=== PATIENT | female | born 1950 | race Caucasian/White ===

== ENCOUNTER 2017-01-14 19:55 | Emergency (ER) | payer OTHER ==
[2017-01-14 20:01] VITALS: BP 140/80; PULSE 78; TEMP 98; BMI 28.3
--- NOTE | 2017-01-14 20:36 | PDOC ---
History of Present Illness - General Chief Complaint: Burn Stated Complaint: BURN/EMPLOYEE Time Seen by Provider: 01/14/17 20:07 History Source: Patient Exam Limitations: No Limitations - History of Present Illness Timing/Duration: 1/2 hour Associated Symptoms: reports: denies symptoms Past History - Travel Traveled outside of the country in the last 30 days: No Close contact w/someone who was outside of country & ill: No - Past Medical History Allergies/Adverse Reactions: Allergies Allergy/AdvReac Type Severity Reaction Status Date / Time No Known Allergies Allergy Verified 05/13/16 20:50 Home Medications: Ambulatory Orders Cholecalciferol (Vitamin D3) [Vitamin D] 1,000 unit PO ASDIR 01/02/13 Hydrochlorothiazide 25 mg PO DAILY 01/02/13 Metoprolol Tartrate [Lopressor] 25 mg PO DAILY 01/02/13 Insulin Glargine,Hum.rec.anlog [Lantus Solostar PEN (NF)] 10 units SQ HS Diabetes: Yes (type 2) HTN: Yes Hypercholesterolemia: Yes - Surgical History Abdominal Surgery: Yes Cholecystectomy: Yes - Psycho/Social/Smoking Cessation Hx Anxiety: No Suicidal Ideation: No Smoking Status: Yes Smoking History: Former smoker Have you smoked in the past 12 months: No Number of Cigarettes Smoked Daily: 0 Information on smoking cessation initiated: No Hx Alcohol Use: No Drug/Substance Use Hx: No Substance Use Type: None Review of Systems - Review of Systems Able to Perform ROS?: Yes Comments:: 01/14/17 20:32 MUSCULOSKELETAL: Absent: myalgia, arthralgia, joint swelling SKIN: slight redness to left dorsal prox 1st digit Absent: rash, itching, pallor HEMATOLOGIC/IMMUNOLOGIC: Absent: easy bleeding, easy bruising, lymphadenopathy, frequent infections Is the patient limited Jordanian proficient: No *Physical Exam - Vital Signs Last Vital Signs Temp Pulse Resp BP Pulse Ox 98 F 78 18 140/80 98 01/14/17 19:59 01/14/17 19:59 01/14/17 19:59 01/14/17 19:59 01/14/17 19:59 - Physical Exam Comments: 01/14/17 20:33 GENERAL: Well developed, well nourished. Awake and alert. No acute distress. MUSCULOSKELETAL Normal range of motion at all joints. No bony deformities or tenderness. No CVA tenderness. EXTREMITIES: No cyanosis. No clubbing. No edema. No calf tenderness. SKIN: +mild redness to left prox 1st digit Warm and dry. Normal capillary refill. No rashes. No jaundice. 01/14/17 20:41 66-year-old female presents to the emergency department complaining of pain and slight redness to the left dorsal thumb. Patient states a cup of hot tea splashed onto her left thumb and mid abdomen half hour prior to being seen. Patient denies any extremity numbness or tingling sensation. Patient says her left thumb was initially a reddish color which has subsided over the past few minutes. Patient denies any redness or pain to her abdomen. 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 Patient states she is well to return to work. *DC/Admit/Observation/Transfer Diagnosis at time of Disposition: Burn - Discharge Dispostion Disposition: HOME Condition at time of disposition: Good Admit: No - Patient Instructions Printed Discharge Instructions: DI for Sun Additional Instructions: Please follow up with your physician Apply bacitracin to your thumb twice a day Take tylenol/motrin as needed for pain Return to the ER for severe/persistent/worsening symptoms
== END 2017-01-14 20:46 | disposition home or self-care (01) ==
LOC: JER 19:55
DX: T23.112A Burn of first degree of left thumb (nail), initial encounter (principal); T21.12XA Burn of first degree of abdominal wall, initial encounter; X10.0XXA Contact with hot drinks, initial encounter; Y93.89 Activity, other specified; Y92.89 Other specified places as the place of occurrence of the external cause; Y99.8 Other external cause status; I10 Essential (primary) hypertension; E11.9 Type 2 diabetes mellitus without complications; Z79.84 Long term (current) use of oral hypoglycemic drugs; E78.00 Pure hypercholesterolemia, unspecified
CPT/HCPCS: 99281-25

== ENCOUNTER 2018-09-12 16:10 | Emergency (ER) | payer OTHER ==
[2018-09-12 16:17] VITALS: BP 145/74; PULSE 91; TEMP 98.6; BMI 27.8
[2018-09-12] MEDS: ALBUTEROL SO4 2.5/IPRATROPIUM 0.5 INH SOL 3 ML VIAL.NEB. NEB SCH ×2 (16:45→17:01)
--- NOTE | 2018-09-12 16:48 | PDOC ---
History of Present Illness - General Chief Complaint: Respiratory Stated Complaint: BRONCHITIS Time Seen by Provider: 09/12/18 16:33 History Source: Patient Exam Limitations: No Limitations - History of Present Illness Initial Comments: 09/12/18 17:18 Patient here with complaints of persistent cough, fevers and chills, and malaise for 1-1/2 weeks. Was seen by PMD a few days ago and has been taking Ceftin with no resolved. Continues to wheeze, has a moist productive cough of thick yellow phlegm. Timing/Duration: reports: changing over time, getting worse, gone now Severity: reports: mild, moderate Associated Symptoms: reports: denies symptoms, cough, fever/chills, nasal congestion, nasal drainage, shortness of breath Past History - Travel Traveled outside of the country in the last 30 days: No Close contact w/someone who was outside of country & ill: No - Past Medical History Allergies/Adverse Reactions: Allergies Allergy/AdvReac Type Severity Reaction Status Date / Time No Known Allergies Allergy Verified 09/12/18 16:13 Home Medications: Ambulatory Orders Cholecalciferol (Vitamin D3) [Vitamin D] 1,000 unit PO ASDIR 01/02/13 Hydrochlorothiazide 25 mg PO DAILY 01/02/13 Metoprolol Tartrate [Lopressor] 25 mg PO DAILY 01/02/13 Insulin Glargine,Hum.rec.anlog [Lantus Solostar PEN (NF)] 10 units SQ HS Albuterol 0.083% Nebulizer Sofiya [Ventolin 0.083% Nebulizer Soln -] 1 neb NEB Q4H PRN #30 vial 09/12/18 Atorvastatin Ca [Lipitor] 10 mg PO HS 09/12/18 Azithromycin [Zithromax -] 250 mg PO UTDICT #6 tab 09/12/18 Metformin HCl [Glucophage] 1,000 mg PO DAILY 09/12/18 predniSONE [Deltasone -] 20 mg PO BID #8 tablet 09/12/18 COPD: No Diabetes: Yes (type 2) HTN: Yes Hypercholesterolemia: Yes - Surgical History Abdominal Surgery: Yes Cholecystectomy: Yes - Immunization History Immunization Up to Date: Yes - Suicide/Smoking/Psychosocial Hx Smoking Status: Yes Smoking History: Never smoked Have you smoked in the past 12 months: No Number of Cigarettes Smoked Daily: 0 Hx Alcohol Use: No Drug/Substance Use Hx: No Substance Use Type: None Respiratory Specific PMHX - Complaint Specific PMHX Angina: No Pulmonary Embolus: No Review of Systems - Review of Systems Able to Perform ROS?: Yes Is the patient limited Malagasy proficient: Yes Constitutional: Yes: Symptoms Reported, See HPI, Malaise HEENTM: Yes: Symptoms Reported, See HPI Respiratory: Yes: Symptoms reported, See HPI, Cough, Orthopnea, Wheezing ABD/GI: No: Symptoms Reported Musculoskeletal: Yes: Symptoms Reported, See HPI Integumentary: No: Symptoms Reported Neurological: Yes: Symptoms reported, See HPI, Headache All Other Systems: Reviewed and Negative *Physical Exam - Vital Signs Last Vital Signs Temp Pulse Resp BP Pulse Ox 98.6 F 91 H 18 145/74 96 09/12/18 16:14 09/12/18 16:14 09/12/18 16:14 09/12/18 16:14 09/12/18 16:14 - Physical Exam General Appearance: Yes: Nourished, Appropriately Dressed, Apparent Distress, Mild Distress, Moderate Distress HEENT: positive: TREVER, Normal ENT Inspection, TMs Normal, Pharynx Normal, Nasal Congestion, Rhinorrhea Neck: positive: Supple, Lymphadenopathy (R), Lymphadenopathy (L). negative: Tender Respiratory/Chest: positive: Decreased Breath Sounds, Wheezing. negative: Lungs Clear, Normal Breath Sounds Musculoskeletal: positive: Normal Inspection. negative: Vertebral Tenderness Extremity: positive: Normal Capillary Refill, Normal Inspection, Normal Range of Motion. 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 Chest x-ray negative for infiltrates or other pathology. Ready for discharge, we'll change antibiotic from Ceftin to azithromycin and have follow-up with PMD Saturday. *DC/Admit/Observation/Transfer Diagnosis at time of Disposition: Bronchitis - Discharge Dispostion Disposition: HOME Condition at time of disposition: Stable Decision to Admit order: No - Prescriptions Prescriptions: Albuterol 0.083% Nebulizer Sofiya [Ventolin 0.083% Nebulizer Soln -] 1 neb NEB Q4H PRN #30 vial PRN Reason: Cough Azithromycin [Zithromax -] 250 mg PO UTDICT #6 tab predniSONE [Deltasone -] 20 mg PO BID #8 tablet - Referrals Referrals: Karla Licona [Primary Care Provider] - - Patient Instructions Printed Discharge Instructions: DI for Acute Bronchitis Additional Instructions: Rest, drink lots of fluids: Teas, water, soups, Pedialyte Saltwater gargles Steamy showers/seem to face break up mucus Avoid contact with others until fevers and cough resolved Lots of handwashing and good hygiene Continue [id number] medications for symptomatic relief Tylenol or Motrin for fever and pain Continue albuterol nebulizers every 4-6 hours for the next 2 days then as needed for continued cough Prednisone as directed until completed change antibiotic to azithromycin Followup with private physician in one to 2 days Return to emergency department / pediatric hospital for worsened symptoms, fevers, dehydration - Post Discharge Activity Forms/Work/School Notes: Back to Work
[2018-09-12] MEDS ORDERED: ALBUTEROL SO4 2.5/IPRATROPIUM 0.5 INH SOL 3 ML VIAL.NEB. NEB ONE (16:56)
[2018-09-12] MEDS ORDERED: predniSONE 20 MG TABLET (UD) PO ONE (17:06)
[2018-09-12] MEDS ORDERED: predniSONE 20 MG TABLET (UD) ONE (17:08)
== END 2018-09-12 18:32 | disposition home or self-care (01) ==
LOC: JERFT 16:10
PROC: 3E0F7GC Introduction of Other Therapeutic Substance into Respiratory Tract, Via Natural or Artificial Opening (ICD-10-PCS; principal; 2018-09-12)
DX: J40 Bronchitis, not specified as acute or chronic (principal); I10 Essential (primary) hypertension; E11.9 Type 2 diabetes mellitus without complications; Z79.4 Long term (current) use of insulin; E78.00 Pure hypercholesterolemia, unspecified
CPT/HCPCS: 71046-TC-FY; 87804; 99281-25

== ENCOUNTER 2019-01-04 18:53 | Emergency (ER) | payer OTHER ==
[2019-01-04 19:00] VITALS: BP 133/72; PULSE 82; TEMP 97.7; BMI 30.7
[2019-01-04] MEDS ORDERED: CYCLOBENZAPRINE HCL 10 MG TABLET (FP) ONE (19:25)
[2019-01-04] MEDS ORDERED: CYCLOBENZAPRINE HCL 10 MG TABLET (FP) PO ONE (19:31)
--- NOTE | 2019-01-04 19:33 | PDOC ---
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 Has pain with movement, but without numbness or tingling down arm or hand. Has made her mildly dizzy and mildly nauseous. Timing/Duration: 1 hour Severity: moderate Associated Symptoms: reports: diaphoresis, headaches. denies: fever/chills Past History - Travel Traveled outside of the country in the last 30 days: No Close contact w/someone who was outside of country & ill: No - Past Medical History Allergies/Adverse Reactions: Allergies Allergy/AdvReac Type Severity Reaction Status Date / Time No Known Allergies Allergy Verified 01/04/19 19:00 Home Medications: Ambulatory Orders Cholecalciferol (Vitamin D3) [Vitamin D] 1,000 unit PO ASDIR 01/02/13 Hydrochlorothiazide 25 mg PO DAILY 01/02/13 Metoprolol Tartrate [Lopressor] 25 mg PO DAILY 01/02/13 Insulin Glargine,Hum.rec.anlog [Lantus Solostar PEN (NF)] 10 units SQ HS Atorvastatin Ca [Lipitor] 10 mg PO HS 09/12/18 Metformin HCl [Glucophage] 1,000 mg PO DAILY 09/12/18 Cyclobenzaprine HCl 10 mg PO Q8H PRN #14 tablet 01/04/19 Naproxen [Naprosyn -] 500 mg PO BID #30 tablet 01/04/19 COPD: No Diabetes: Yes (type 2) HTN: Yes Hypercholesterolemia: Yes - Surgical History Abdominal Surgery: Yes Cholecystectomy: Yes - Immunization History Immunization Up to Date: Yes - Suicide/Smoking/Psychosocial Hx Smoking Status: Yes Smoking History: Former smoker Have you smoked in the past 12 months: No Number of Cigarettes Smoked Daily: 0 Information on smoking cessation initiated: No Hx Alcohol Use: No Drug/Substance Use Hx: No Substance Use Type: None Review of Systems - Review of Systems Able to Perform ROS?: Yes Is the patient limited Indonesian proficient: Yes Constitutional: Yes: Symptoms Reported, See HPI, Chills, Malaise HEENTM: Yes: See HPI. No: Symptoms Reported Respiratory: No: Symptoms reported Musculoskeletal: Yes: Symptoms Reported, See HPI, Back Pain, Neck Pain Neurological: Yes: See HPI, Dizziness All Other Systems: Reviewed and Negative *Physical Exam - Vital Signs Last Vital Signs Temp Pulse Resp BP Pulse Ox 97.7 F 82 18 133/72 97 01/04/19 18:57 01/04/19 18:57 01/04/19 18:57 01/04/19 18:57 01/04/19 18:57 - Physical Exam General Appearance: Yes: Nourished, Appropriately Dressed, Apparent Distress, Moderate Distress HEENT: positive: TREVER, Normal ENT Inspection, TMs Normal, Pharynx Normal Neck: positive: Tender, Other (patient without cervical spine crepitus or step- offs, has no true bone tenderness but palpable spasm and tension with exquisite tenderness along the belly of the sternocleidomastoid on the right side of neck. Worsened pain with pressure at occiput and unable to turn neck secondary to the same spasm.). negative: Supple, Lymphadenopathy (R), Lymphadenopathy (L) , Tender midline Respiratory/Chest: positive: Lungs Clear, Normal Breath Sounds Musculoskeletal: positive: Normal Inspection, Decreased Range of Motion, Muscle Spasm. 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 NML intact, Fully Oriented, Alert, Normal Mood/ Affect, Normal Response, Motor Strength 5/5 Medical Decision Making - Medical Decision Making 01/04/19 19:31 Torticollis, will treat with NSAIDs and cyclobenzaprine *DC/Admit/Observation/Transfer Diagnosis at time of Disposition: Sprain of cervical neck Qualifiers: Encounter type: initial encounter Qualified Code(s): S13.9XXA - Sprain of joints and ligaments of unspecified parts of neck, initial encounter - Discharge Dispostion Disposition: HOME Condition at time of disposition: Stable Decision to Admit order: No - Referrals - Patient Instructions Printed Discharge Instructions: DI for Cervical Muscle Strain Additional Instructions: Rest, no heavy lifting or exercise until pain is resolved Hot soaks to neck and low back as often as possible/hot showers or Jacuzzis No massage or therapy until spasm is gone Continue Naprosyn 500 mg tablet, 1 tablet every 8 hours for the next 3 days then as needed for pain and swelling Cyclobenzaprine 1-10mg every 8 hours as needed for spasm If not significant improvement within 24 hours with medication and rest regime, followup with private physician for change in medications and /or therapy. - Post Discharge Activity Forms/Work/School Notes: Back to Work
== END 2019-01-04 19:51 | disposition home or self-care (01) ==
LOC: JERFT 18:53
DX: S13.4XXA Sprain of ligaments of cervical spine, initial encounter (principal); X50.0XXA Overexertion from strenuous movement or load, initial encounter; Y93.F9 Activity, other caregiving; Y92.238 Other place in hospital as the place of occurrence of the external cause; Y99.0 Civilian activity done for income or pay; I10 Essential (primary) hypertension; E78.00 Pure hypercholesterolemia, unspecified; E11.9 Type 2 diabetes mellitus without complications; Z79.84 Long term (current) use of oral hypoglycemic drugs
CPT/HCPCS: 99281-25